=== PATIENT | female | born 1970 | race Caucasian/White ===

== ENCOUNTER 2018-07-29 07:04 | Outpatient (CLI) | payer OTHER ==
[~2018-07-29] VITALS: Ht 157.5 cm; Wt 71.2 kg
[2018-07-29 07:26] VITALS: BP 120/61; PULSE 59; TEMP 97.8
[2018-07-29] MEDS ORDERED: DESYREL DIVIDO150 M1 PO (07:41)
[2018-07-29] MEDS ORDERED: ZYRTEC 10MG10 MG PO (07:41)
[2018-07-29] MEDS ORDERED: PREMPRO 0.3 MG-1 TAB PO (07:42)
[2018-07-29] MEDS ORDERED: PROVIGIL200 MG PO (07:44)
[2018-07-29] MEDS ORDERED: CARDIZEM120 MG PO (07:45)
[2018-07-29] MEDS ORDERED: ASPIRIN 32325 MG/TAB PO (07:46)
[2018-07-29] MEDS ORDERED: CEPHALEXIN500 M1 PO (10:39)
[2018-07-29 11:10] VITALS: BP 129/71; PULSE 75; TEMP 98
== END 2018-07-29 15:10 | disposition home or self-care (01) ==
LOC: COL.CAR 07:04
DX: I48.0 Paroxysmal atrial fibrillation (principal); I27.20 Pulmonary hypertension, unspecified; I34.0 Nonrheumatic mitral (valve) insufficiency; D50.9 Iron deficiency anemia, unspecified; I25.10 Atherosclerotic heart disease of native coronary artery without angina pectoris; I73.9 Peripheral vascular disease, unspecified; F32.9 Major depressive disorder, single episode, unspecified; J30.2 Other seasonal allergic rhinitis; G47.00 Insomnia, unspecified; G43.909 Migraine, unspecified, not intractable, without status migrainosus; G47.419 Narcolepsy without cataplexy; Z79.82 Long term (current) use of aspirin; Z82.5 Family history of asthma and other chronic lower respiratory diseases; Z82.49 Family history of ischemic heart disease and other diseases of the circulatory system

== ENCOUNTER 2020-11-24 11:08 | Day surgery (SDC) | payer OTHER ==
[2020-11-24] VITALS (8 sets, daily range): BP systolic 97–134; BP diastolic 48–78; PULSE 59–75; TEMP 98.5
[~2020-11-24] VITALS: Ht 157.6 cm; Wt 73.0 kg
[~2020-11-24 11:08] MED LIST: ASPIRIN 32325 MG/TAB PO; CARDIZEM CD 18180 MG PO; CEPHALEXIN500 M1 PO; DESYREL 50MG50 MG PO; PREMPRO 0.3 MG-1 TAB PO; PROVIGIL200 MG PO; ZYRTEC 10MG10 MG PO
[2020-11-24] MEDS ORDERED: PAXIL 10MG10 MG PO (11:23)
[2020-11-24] MEDS ORDERED: MAXALT10 MG PO (11:23)
[2020-11-24] MEDS ORDERED: COZAAR100 MG PO (11:23)
[2020-11-24] MEDS ORDERED: PROTONIX 40MG T40 MG PO (11:24)
[2020-11-24] MEDS ORDERED: HYDRODIURIL50 MG PO (11:24)
--- NOTE | 2020-11-24 13:13 | NUR ---
SEE MERGE DOCUMENTATION FOR MEDICATION ADMINISTRATION AND INTRA/POST PROCEDURE SEDATION ASSESSMENTS.
--- NOTE | 2020-11-24 13:45 | NUR ---
Pt back to [facility] after loop excision/insertion. Pt is awake and alert. Gauze dressing to loop sites is clean and dry. ice pack to area. lunch ordered. optical instrument repairer at bs to sync pt's phone and answer questions. Pt's is at bs.
[2020-11-24] MEDS ORDERED: CEPHALEXIN500 M1 PO (14:14)
--- NOTE | 2020-11-24 15:35 | NUR ---
Pt is ready for departure.. Dr. Montes has been back in to discuss discharge plan with pt and her . We have reviewed dc/fu and rx instructions. Pt denies questions. IV is dc'd with cath intact, dressing applied. Pt is amb to br with steady gait. To exit via wheelchair. dc paperwork was left in room. I called pt and told her paperwork would be mailed. Pt okay with this plan.
== END 2020-11-24 16:31 | disposition home or self-care (01) ==
LOC: COL.CAR 11:08
DX: I48.0 Paroxysmal atrial fibrillation (principal); I63.9 Cerebral infarction, unspecified; I10 Essential (primary) hypertension; E78.5 Hyperlipidemia, unspecified; Z79.82 Long term (current) use of aspirin; Z79.899 Other long term (current) drug therapy; Z88.8 Allergy status to other drugs, medicaments and biological substances; Z95.818 Presence of other cardiac implants and grafts; Z20.822 Contact with and (suspected) exposure to COVID-19
CPT/HCPCS: C1764; J0690; J2250; J3010